=== PATIENT | male | born 1980 | race Two or more races ===

== ENCOUNTER 2021-06-27 07:48 | Outpatient (CLI) | payer OTHER ==
[~2021-06-27 07:48] MED LIST: CIPRO500 MG PO; GLUCOTROL5 MG/BOTTL PO; INDOMETHACIN75 MG PO; KETO10TA2 PO; LOTRISONE CREAM45 GM TP; METFORMIN HCL1000 MG; PREDNISONE5 MG/DOSE- PO; SIMVASTATIN5 MG; TRAMADOL HCL50 MG PO; ZYLOPRIM100 M1 PO
== END 2021-06-27 08:12 | disposition home or self-care (01) ==
LOC: SONOGRAMA 07:48 → RX STUDY 09:15
PROVIDERS: ATTEND Surgery
DX: K76.0 Fatty (change of) liver, not elsewhere classified (principal); K80.80 Other cholelithiasis without obstruction; I10 Essential (primary) hypertension; R00.8 Other abnormalities of heart beat; R10.31 Right lower quadrant pain; E66.01 Morbid (severe) obesity due to excess calories

== ENCOUNTER → 2021-07-19 | Day surgery (SDC) | payer OTHER | END | disposition home or self-care (01) | LOC: ADM 07-16 07:30 → AMB-ENDOS 07:30 | PROVIDERS: ATTEND Surgery | DX: D13.1 Benign neoplasm of stomach (principal); K44.9 Diaphragmatic hernia without obstruction or gangrene ==

== ENCOUNTER → 2022-03-01 | Emergency (ER) | payer OTHER ==
[~2022-03-01] VITALS: Ht 180.3 cm; Wt 149.7 kg
[~2022-03-01] MED LIST changes: +HYDRALAZINE HCL25 MG PO
== END | disposition left against medical advice (07) ==
LOC: ER 10:21
DX: S81.811A Laceration without foreign body, right lower leg, initial encounter (principal); X58.XXXA Exposure to other specified factors, initial encounter; Y93.9 Activity, unspecified; Y92.9 Unspecified place or not applicable; Y99.9 Unspecified external cause status; E11.9 Type 2 diabetes mellitus without complications; Z79.84 Long term (current) use of oral hypoglycemic drugs; I10 Essential (primary) hypertension; E66.01 Morbid (severe) obesity due to excess calories; I83.891 Varicose veins of right lower extremity with other complications; Z91.013 Allergy to seafood

== ENCOUNTER 2022-03-11 23:55 | Emergency (ER) | payer OTHER ==
[~2022-03-11] VITALS: Ht 180.3 cm; Wt 149.7 kg
== END 2022-03-12 11:02 | disposition home or self-care (01) ==
LOC: ER 23:55
DX: T81.49XA Infection following a procedure, other surgical site, initial encounter (principal); Y83.8 Other surgical procedures as the cause of abnormal reaction of the patient, or of later complication, without mention of misadventure at the time of the procedure; Y92.89 Other specified places as the place of occurrence of the external cause; L08.9 Local infection of the skin and subcutaneous tissue, unspecified; L03.115 Cellulitis of right lower limb; E11.9 Type 2 diabetes mellitus without complications; Z79.899 Other long term (current) drug therapy; Z48.02 Encounter for removal of sutures; Z91.013 Allergy to seafood

== ENCOUNTER 2022-08-06 07:49 | Emergency (ER) | payer OTHER ==
[~2022-08-06] VITALS: Ht 180.3 cm; Wt 149.7 kg
== END 2022-08-06 12:50 | disposition left against medical advice (07) ==
LOC: ER 07:49
DX: Z53.21 Procedure and treatment not carried out due to patient leaving prior to being seen by health care provider (principal)

== ENCOUNTER 2023-06-24 10:27 | Emergency (ER) | payer OTHER ==
[~2023-06-24] VITALS: Ht 180.3 cm; Wt 142.9 kg
[2023-06-24] MEDS ORDERED: WEGOVY0.25 MG/0. (10:47)
== END 2023-06-24 15:55 | disposition home or self-care (01) ==
LOC: ER 10:27
PROVIDERS: General Practice
DX: R53.81 Other malaise (principal); R42 Dizziness and giddiness; Z20.822 Contact with and (suspected) exposure to COVID-19; E11.9 Type 2 diabetes mellitus without complications; Z79.84 Long term (current) use of oral hypoglycemic drugs; Z91.013 Allergy to seafood

== ENCOUNTER 2023-11-22 18:11 | Emergency (ER) | payer OTHER ==
[~2023-11-22] VITALS: Ht 180.3 cm; Wt 142.9 kg
[~2023-11-22 18:11] MED LIST changes: +WEGOVY0.25 MG/0.
[2023-11-22 20:50] LABS: HEMOGLOBIN 17.9 g/dL (13-16.00); MEAN CELL VOLUME 85.3 fL (80.0-100.00); MEAN CORPUSCULAR HEMOGLOBIN 29.4 pg (27.00-32.0); MEAN CORPUSCULAR HGB CONC 34.4 g/dl (32.0-36.0); PLATELET COUNT 267 K/uL (150-450); RED CELL DISTRIBUTION WIDTH 14.5 % (11.5-14.5)
[2023-11-22 20:52] LABS: URINE BACTERIA 11.3 uL (0.0-1933); URINE EPITHELIAL CELLS 11.1 uL (0.0-38.8); URINE RBC 6.3 uL (0.0-20.8); URINE WBC 6.6 uL (0.0-23.2)
[2023-11-22 21:21] LABS: PH,URINE 5.5 (5.0-8.0); URINE APPEARANCE Clear; URINE BILIRRUBIN Negative (NEGATIVE); URINE BLOOD Negative; URINE COLOR Dark Yellow; URINE GLUCOSE Negative (NEGATIVE); URINE LEUKOCYTE Negative; URINE NITRATE Negative; URINE PROTEIN Trace (NEGATIVE); URINE UROBILINOGEN 0.2 E.U./dl
[2023-11-22 21:41] LABS: CALCIUM 8.7 mg/dL (8.5-10.1); CREATININE SERUM 1.09 mg/dL (0.70-1.30); GFR 74.55; POTASSIUM 5.09 mEq/L (3.5-5.1)
[2023-11-23] MEDS ORDERED: ZOFRAN8 MG PO (02:23)
[2023-11-23] MEDS ORDERED: PEPCID AC20 MG PO (02:23)
== END 2023-11-23 02:36 | disposition home or self-care (01) ==
LOC: ER 18:11
PROVIDERS: General Practice
DX: R11.10 Vomiting, unspecified (principal); R10.9 Unspecified abdominal pain; Z20.822 Contact with and (suspected) exposure to COVID-19; E11.9 Type 2 diabetes mellitus without complications; Z79.84 Long term (current) use of oral hypoglycemic drugs; Z91.013 Allergy to seafood
CPT/HCPCS: 36415; 74177; Q9965